=== PATIENT | female | born 2000 | race Caucasian/White ===

== ENCOUNTER 2020-07-27 20:43 | Emergency (ER) | payer BC, SELFPAY ==
--- NOTE | 2020-07-27 20:32 | ECG_ITS ---
APPROVED REPORT Exam: Resting ECG HR:73 bpm ECG Measurements Heart Rate 73 AXES NC 144 P 8 QRSd 86 QRS 58 QT 390 T 55 QTc 429 Conclusion Normal sinus rhythm Normal ECG Electronically signed by : Jorge L Hartman, 07/29/2020 07:27:23
[2020-07-27 20:43] VITALS: BP 132/91; PULSE 85; RESP 19; TEMP 36.5; O2SAT 97; BMI 45.3
--- NOTE | 2020-07-27 20:57 | CT_ITS ---
PROCEDURE INFORMATION: Exam: CT Cervical Spine Without Contrast Exam date and time: 07/27/2020 8:57 PM Age: 20 years old Clinical indication: Patient HX: Loc, nausea, dizzy, syncope, PT passed out and fell TECHNIQUE: Imaging protocol: Computed tomography images of the cervical spine without contrast. Radiation optimization: All CT scans at this facility use at least one of these dose optimization techniques: automated exposure control; mA and/or kV adjustment per patient size (includes targeted exams where dose is matched to clinical indication); or iterative reconstruction. COMPARISON: No relevant prior studies available. FINDINGS: Bones/joints: No acute fracture. Normal alignment. Discs/Spinal canal/Neural foramina: No significant disc protrusion. No severe spinal canal stenosis. No significant neural foraminal narrowing. Lungs: Lung apices are normal. Soft tissues: Unremarkable. IMPRESSION: No acute findings.
--- NOTE | 2020-07-27 20:57 | XR_ITS ---
PROCEDURE INFORMATION: Exam: XR Chest Exam date and time: 07/27/2020 8:57 PM Age: 20 years old Clinical indication: Cough; Additional info: SOB, cough TECHNIQUE: Imaging protocol: XR of the chest. Views: 4 or more views. COMPARISON: No relevant prior studies available. FINDINGS: Lungs: Unremarkable. No consolidation. Pleural spaces: Unremarkable. No pleural effusion. No pneumothorax. Heart/Mediastinum: Unremarkable. No cardiomegaly. Bones/joints: Unremarkable. IMPRESSION: No acute findings.
--- NOTE | 2020-07-27 20:57 | XR_ITS ---
PROCEDURE INFORMATION: Exam: XR Pelvis Exam date and time: 07/27/2020 8:57 PM Age: 20 years old Clinical indication: Injury or trauma; Blunt trauma (contusions or hematomas); Bilateral; Pelvic region; Injury date: 07/27/20; Patient HX: Fall from syncope TECHNIQUE: Imaging protocol: XR pelvis. Views: 1 or 2 view. COMPARISON: No relevant prior studies available. FINDINGS: Bones/joints: Unremarkable. No acute fracture. Soft tissues: Unremarkable. IMPRESSION: No acute findings.
--- NOTE | 2020-07-27 21:03 | CT_ITS ---
PROCEDURE INFORMATION: Exam: CT Head Without Contrast Exam date and time: 07/27/2020 9:03 PM Age: 20 years old Clinical indication: Syncope and collapse; Patient HX: Loc, nausea, dizzy, syncope, PT passed out and fell; Additional info: Syncopy TECHNIQUE: Imaging protocol: Computed tomography of the head without contrast. Radiation optimization: All CT scans at this facility use at least one of these dose optimization techniques: automated exposure control; mA and/or kV adjustment per patient size (includes targeted exams where dose is matched to clinical indication); or iterative reconstruction. COMPARISON: No relevant prior studies available. FINDINGS: Brain: Normal. No hemorrhage. Unremarkable white matter. No mass effect. Cerebral ventricles: No ventriculomegaly. Paranasal sinuses: Visualized sinuses are unremarkable. No fluid levels. Mastoid air cells: Visualized mastoid air cells are well aerated. Bones/joints: Unremarkable. No acute fracture. Soft tissues: Unremarkable. IMPRESSION: No acute intracranial abnormality.
--- NOTE | 2020-07-27 21:03 | HMH.EDSYNC ---
ED Disposition Clinical Impression: Vasovagal syncope Disposition: Home, Self-Care Condition on Discharge: Good Instructions: DI for Syncope in Adults (Fainting) Additional Instructions: fluids and see pcp for follow up Referrals: Provider,Referral, [Referring] - - Critical Care Critical Care Time: No Attestation: On 07/27/20, the high probability of a clinically significant, sudden or life threatening deterioration of the following system(s) required my full and direct attention, intervention and personal management. The time I documented below is in addition to time spent performing reported procedures but includes the following listed in this critical care notation. Medical Decision Making - Medical Records Medical records reviewed: Yes: I reviewed the patient's medical records. - [place] Inquiry Pt receiving controlled substance: No Vital Signs: 07/27/20 20:43 Temperature 97.7 F Temperature Source Oral Pulse Rate [Right] 85 Respiratory Rate 19 Blood Pressure [Right Arm] 132/91 H Blood Pressure Mean [Right Arm] 104 Blood Pressure Source [Right Arm] Automatic Cuff 02 Sat by Pulse Oximetry 97 Oxygen Delivery Method Room Air - Lab Data Lab results reviewed: Yes: I reviewed the patient's lab results. Lab Results 07/27/20 20:45: WBC 8.1, RBC 4.80, Hgb 14.3, Hct 42.8, MCV 89.1, MCH 29.8, MCHC 33.5, RDW 13.1, Plt Count 426 H, MPV 8.8, Neut % (Auto) 58.3, Lymph % (Auto) 35.4, [place] % (Auto) 2.5, Eos % (Auto) 3.5, Baso % (Auto) 0.3, Neut # (Auto) 4.7, Lymph # (Auto) 2.9, [place] # (Auto) 0.2, Eos # (Auto) 0.3, Baso # (Auto) 0.0, ESR 12 07/27/20 20:45: Sodium 138, Potassium 3.7, Chloride 108 H, Carbon Dioxide 26, Anion Gap 7.7, BUN 10, Creatinine 0.70, Estimated Creat Clear 96, Estimated GFR 106, Est GFR ( Amer) 128, Glucose 120 H, Calcium 8.9, Total Bilirubin 0.5, AST 22, ALT 14, Alkaline Phosphatase 53, Troponin I < 0.01, C-Reactive Protein 2.8, Total Protein 7.0, Albumin 4.1, Globulin 2.9, Albumin/Globulin Ratio 1.4, Procalcitonin 0.031 07/27/20 20:45: Serum HCG, Qual Negative Result diagrams: 07/27/20 20:45 07/27/20 20:45 Orders (Tests/Meds): ED MEDICATIONS Generic Name Dose Route Start Last Admin Trade Name Freq PRN Reason Stop Dose Admin Sodium Chloride 1,000 mls @ 999 mls/hr 07/27/20 21:15 07/27/20 21:03 Sod Chlor 0.9% 1000ml Bag IV 07/27/20 22:15 999 mls/hr .Q1H1M DEJON Administration Discontinued Medications Generic Name Dose Route Start Last Admin Trade Name Freq PRN Reason Stop Dose Admin Ketorolac Tromethamine 30 mg 07/27/20 20:57 07/27/20 22:13 Ketorolac 30mg/Ml Vial IV 07/27/20 20:58 30 mg ONCE ONE Administration Ondansetron HCl 4 mg 07/27/20 20:57 07/27/20 22:13 Ondansetron 4mg/2ml Vial IV 07/27/20 20:58 4 mg ONCE ONE Administration ORDERS Category Date Time Status Drug Screen,Urine Stat Lab 07/27/20 20:57 Ordered Troponin I Q3H Lab 07/28/20 00:00 Ordered Troponin I Q3H Lab 07/28/20 03:00 Ordered Urinalysis and Microscopic Stat Lab 07/27/20 20:57 Ordered - Radiology Data #1 Image(s): Chest, Pelvis Image Reviewed: Yes I reviewed the patient's radiology image Preliminary Findings: Normal/NAD - CT Data CT Scan: Head, C-Spine Time Received: 22:[address] Reviewed: Yes: I have viewed the radiologist's interpretation Preliminary Findings: No Fracture Seen - ECG Data Tracing #1 Normal Sinus Rhythm: Yes Ischemic changes: non-specific ST-T wave changes Medical Decision Narrative: pt with no focal changes - and stable exam Syncope HPI - General Chief Complaint: Syncope Stated Complaint: Passed out, nausea and dizzy Time Seen by Provider: 07/27/20 21:03 Mode of Arrival: EMS Source of Information: Patient, EMS, Medical Record Limitations: No Limitations Description of Symptoms (Recalled from ER Triage Doc. by RN): Pt reports she has felt nauseated and light headed after spending the day outside swimmin
[2020-07-27 21:09] LABS: Basophils % 0.3 % (0.1-2.0); Eosinophils # 0.3 K/mm3 (0.0-0.4); Eosinophils % 3.5 % (0.1-12.0); Hematocrit 42.8 % (37.0-47.0); Hemoglobin 14.3 g/dL (12.2-16.2); Lymphocytes # 2.9 K/mm3 (0.7-4.5); Lymphocytes % 35.4 % (10-50); Mean Corpuscular HGB Conc 33.5 g/dL (31.8-35.4); Mean Corpuscular Hemoglobin 29.8 pg (27.0-31.2); Mean Corpuscular Volume 89.1 fl (81-99); Mean Platelet Volume 8.8 fl (7.4-10.4); Monocytes # 0.2 K/mm3 (0.1-1.0); Monocytes % 2.5 % (1.7-9.3); Neutrophils # 4.7 K/mm3 (1.8-7.8); Neutrophils % 58.3 % (37.0-80.0); Platelet Count 426 K/mm3 (142-424); Red Cell Distribution Width 13.1 % (11.5-17.5); White Blood Count 8.1 K/mm3 (4.8-10.8)
[2020-07-27 21:13] LABS: Alanine Aminotransferase 14 U/L (12-78); Albumin Level 4.1 g/dl (3.5-5.0); Albumin/Globulin Ratio 1.4 (1.1-1.8); Alkaline Phosphatase 53 U/L (38-126); Anion Gap 7.7 mEq/L (5-15); Aspartate Amino Transferase 22 U/L (14-36); Bilirubin,Total 0.5 mg/dl (0.2-1.3); Blood Urea Nitrogen 10 mg/dl (7-17); Calcium 8.9 mg/dl (8.4-10.2); Carbon Dioxide 26 mmol/L (22.0-30.0); Chloride 108 mmol/L (98-107); Creatinine Clearance Estimated 96 mL/min (50-200); Estimated Glomerular Filt Rate 106 ml/min (>60); GFR (African American) 128 ML/MIN (>60); Globulin 2.9 g/dL (1.3-3.2); Glucose 120 mg/dl (74-100); Potassium 3.7 mmoL/L (3.5-5.1); Sodium 138 mmol/L (136-145)
[2020-07-27 21:16] LABS: HCG Qualitative, Serum Negative (Negative)
[2020-07-27 21:18] LABS: C-Reactive Protein 2.8 mg/L (0-4)
[2020-07-27 21:30] LABS: Troponin I < 0.01 ng/ml (0.00-0.034)
[2020-07-27 21:32] LABS: Erythrocyte Sedimentation Rate 12 mm/hr (0-20)
[2020-07-27 21:33] LABS: Procalcitonin 0.031 ng/mL (0.0-2.0)
[2020-07-27 22:34] VITALS: BP 125/74; PULSE 80; RESP 14; TEMP 36.5; O2SAT 97
== END 2020-07-27 22:37 | disposition home or self-care (01) ==
PROVIDERS: Emergency Provider Emergency Medicine; PCP Emergency Medicine
DX: R55 Syncope and collapse (principal)
CPT/HCPCS: 70450; 71045; 72125; 72170; 80053; 84145; 84484; 84703; 85025; 85651; 86140; 93005; 96365; 96375; 99283; J2405

== ENCOUNTER 2020-08-12 17:36 | Emergency (ER) | payer BC, SELFPAY ==
[2020-08-12 17:36] VITALS: BP 135/77; PULSE 95; RESP 16; TEMP 36.7; O2SAT 97; BMI 43.4
[2020-08-12 17:57] LABS: Basophils % 0.4 % (0.1-2.0); Eosinophils # 0.3 K/mm3 (0.0-0.4); Eosinophils % 3.4 % (0.1-12.0); Hematocrit 44.5 % (37.0-47.0); Hemoglobin 14.3 g/dL (12.2-16.2); Lymphocytes # 2.8 K/mm3 (0.7-4.5); Lymphocytes % 30.4 % (10-50); Mean Corpuscular HGB Conc 32.1 g/dL (31.8-35.4); Mean Corpuscular Hemoglobin 28.9 pg (27.0-31.2); Mean Platelet Volume 8.1 fl (7.4-10.4); Monocytes # 0.5 K/mm3 (0.1-1.0); Neutrophils # 5.7 K/mm3 (1.8-7.8); Neutrophils % 60.8 % (37.0-80.0); Platelet Count 478 K/mm3 (142-424); Red Blood Count 4.94 M/mm3 (4.20-5.40); Red Cell Distribution Width 12.4 % (11.5-17.5); White Blood Count 9.3 K/mm3 (4.8-10.8)
[2020-08-12 18:00] VITALS: BP 144/85; PULSE 97; O2SAT 97
[2020-08-12 18:05] LABS: Alanine Aminotransferase 12 U/L (12-78); Albumin Level 4.4 g/dl (3.5-5.0); Albumin/Globulin Ratio 1.5 (1.1-1.8); Alkaline Phosphatase 58 U/L (38-126); Anion Gap 8.7 mEq/L (5-15); Aspartate Amino Transferase 21 U/L (14-36); Bilirubin,Total 0.5 mg/dl (0.2-1.3); Blood Urea Nitrogen 11 mg/dl (7-17); Calcium 9.2 mg/dl (8.4-10.2); Carbon Dioxide 24 mmol/L (22.0-30.0); Chloride 111 mmol/L (98-107); Creatinine Clearance Estimated 84 mL/min (50-200); Estimated Glomerular Filt Rate 91 ml/min (>60); GFR (African American) 110 ML/MIN (>60); Glucose 98 mg/dl (74-100); Potassium 3.7 mmoL/L (3.5-5.1); Sodium 140 mmol/L (136-145); Total Protein,Serum 7.4 g/dl (6.3-8.2)
--- NOTE | 2020-08-12 18:11 | HMH.EDABDPAI ---
ED Disposition Clinical Impression: Acute UTI Disposition: Home, Self-Care Condition on Discharge: Good Instructions: DI for Urinary Tract Infection (UTI) Prescriptions: Nitrofurantoin Monohyd/M-Cryst [Macrobid 100 mg Capsule] 100 mg PO BID #20 cap Transmission Status: Pending to [facility] Promethazine HCl 12.5 mg PO BID #20 tab Transmission Status: Pending to [facility] Referrals: Provider,Referral, [Referring] - - Critical Care Critical Care Time: No Attestation: On 08/12/20, the high probability of a clinically significant, sudden or life threatening deterioration of the following system(s) required my full and direct attention, intervention and personal management. The time I documented below is in addition to time spent performing reported procedures but includes the following listed in this critical care notation. Medical Decision Making - Medical Records Medical records reviewed: Yes: I reviewed the patient's medical records. - [place] Inquiry Pt receiving controlled substance: No Vital Signs: 08/12/20 17:36 08/12/20 18:00 Temperature 98.1 F Temperature Source Oral Pulse Rate 97 H Pulse Rate [Right] 95 H Respiratory Rate 16 Blood Pressure 144/85 H Blood Pressure [Right Arm] 135/77 Blood Pressure Mean [Right Arm] 96 02 Sat by Pulse Oximetry 97 97 Oxygen Delivery Method Room Air - Lab Data Lab Results 08/12/20 17:42: WBC 9.3, RBC 4.94, Hgb 14.3, Hct 44.5, MCV 90.0, MCH 28.9, MCHC 32.1, RDW 12.4, Plt Count 478 H, MPV 8.1, Neut % (Auto) 60.8, Lymph % (Auto) 30.4, Green % (Auto) 5.0, Eos % (Auto) 3.4, Baso % (Auto) 0.4, Neut # (Auto) 5.7, Lymph # (Auto) 2.8, Green # (Auto) 0.5, Eos # (Auto) 0.3, Baso # (Auto) 0.0 08/12/20 17:42: Sodium 140, Potassium 3.7, Chloride 111 H, Carbon Dioxide 24, Anion Gap 8.7, BUN 11, Creatinine 0.80, Estimated Creat Clear 84, Estimated GFR 91, Est GFR ( Amer) 110, Glucose 98, Calcium 9.2, Total Bilirubin 0.5, AST 21, ALT 12, Alkaline Phosphatase 58, Total Protein 7.4, Albumin 4.4, Globulin 3.0, Albumin/Globulin Ratio 1.5 08/12/20 18:22: Urine Color Yellow, Urine Appearance Cloudy, Urine pH 7.0, Ur Specific [place] 1.025, Urine Protein Trace, Urine Glucose (UA) Negative, Urine Ketones Negative, Urine Blood Negative, Urine Nitrate Negative, Urine Bilirubin 1+ A, Urine Urobilinogen 1.0, Ur Leukocyte Esterase 2+ A, Urine WBC 20-50, Ur Squamous Epith Cells 20-50, Urine Bacteria 4+ 08/12/20 18:22: Urine HCG, Qual Negative Result diagrams: 08/12/20 17:42 08/12/20 17:42 Orders (Tests/Meds): ED MEDICATIONS Generic Name Dose Route Start Last Admin Trade Name Freq PRN Reason Stop Dose Admin Promethazine HCl 25 mg 08/12/20 19:00 Promethazine Hcl 25mg/Ml 1ml Vial IV 08/12/20 19:01 ONCE ONE Discontinued Medications Generic Name Dose Route Start Last Admin Trade Name Freq PRN Reason Stop Dose Admin Acetaminophen 500 mg 08/12/20 18:07 08/12/20 18:10 Acetaminophen 500mg Tab PO 08/12/20 18:08 500 mg ONCE ONE Administration Ondansetron HCl 4 mg 08/12/20 18:27 08/12/20 18:27 Ondansetron 4mg/2ml Vial IV 08/12/20 18:28 4 mg ONCE ONE Administration ORDERS Category Date Time Status Urine Culture Stat Micro 08/12/20 18:22 Received - Reevaluation(s) Time: 19:00 Reevaluation #1: On reevaluation, patient is feeling better. Repeat abdominal exam is benign. No acute abdomen. Patient is currently tolerating oral intake. Findings are consistent with acute urinary tract infection. Patient is not . Patient is to follow-up with PCP in 48 hours for repeat examination or return to the emergency department. Patient verbalized understanding. Medical Decision Narrative: 20-year-old female presented to the emergency department with some abdominal cramping and spotting. Patient is unsure if she is , however should be due for her menstrual cycle soon. Her abdominal exam is benign. Wo
[2020-08-12 18:25] LABS: Microscopic, Urine URINE MICROSCOPIC (MICROSCOPIC)
[2020-08-12 18:28] LABS: Appearance,Urine CLOUDY (Clear); Blood, Urine Negative (Negative); Color,Urine YELLOW (Yellow); Glucose,Urine (UA) Negative (Negative); Ketones,Urine Negative (Negative); Leukocyte Esterase,Urine 2+ (Negative); Nitrate,Urine Negative (Negative); Protein,Urine TRACE (Negative); Specific Gravity, Urine 1.025 (1.005-1.030)
[2020-08-12 18:30] LABS: Urine Pregnancy, HCG Qual. Negative (Negative)
[2020-08-12 18:36] LABS: Bilirubin,Urine 1+ (Negative)
[2020-08-12 18:37] LABS: Bacteria,Urine 4+ /lpf; Squamous Epithelial Cell,Urine 20-50 #/hpf (0-5); WBC,Urine 20-50 #/hpf (0-3)
[2020-08-12 19:10] VITALS: BP 124/82; PULSE 91; RESP 18; TEMP 36.7; O2SAT 97
== END 2020-08-12 19:12 | disposition home or self-care (01) ==
PROVIDERS: Emergency Provider Emergency Medicine; PCP Emergency Medicine
DX: N30.00 Acute cystitis without hematuria (principal); F17.210 Nicotine dependence, cigarettes, uncomplicated; Z88.0 Allergy status to penicillin
CPT/HCPCS: 80053; 81001; 81025; 85025; 87086; 96375; 99282; J2405

== ENCOUNTER 2021-12-20 10:41 | Emergency (ER) | payer BC, SELFPAY ==
[2021-12-20 11:21] VITALS: BP 143/83; PULSE 109; RESP 18; TEMP 37.1; O2SAT 100; BMI 41.1
[2021-12-20 11:26] LABS: UTC Influenza A Antigen Negative (Negative)
[2021-12-20 11:27] LABS: UTC Influenza B Antigen Negative (Negative)
--- NOTE | 2021-12-20 11:29 | EXP.UTC ---
Discharge Plan Disposition Patient Disposition: Home, Self-Care Condition: Good Prescriptions Prescriptions: New [id number] [Bromfed DM] 2-30-10 mg/5 mL Syrup 10 ml PO Q4H PRN (Reason: Cough) Qty: 240 0RF Referrals Follow up/Referrals: Provider,Referral, MD [Primary Care Provider] - See instructions Activity Restrictions/Add. Instructions Additional Instructions/Restrictions: *Monitor Temp, Over the counter Motrin or Tylenol as directed/as needed Tylenol every 4 hours and Motrin every 6 hours (as long as your family doctor has told you that you can take it) for fever or pain. and straight to ER if unable to lower temp less than 101.0 after medication given *Warm salt water gargles may help to soothe the throat *Throat Lozenges? *Warm fluids like tea with honey may help to soothe the throat? *Sleep elevated *Humidifier/Vaporizer *Bromfed may cause drowsiness. Know how it effects you (your child) before driving, caring for small child, or sending your child to school. Not other antihistamines/allergy medications while taking bromfed Follow up IMMEDIATELY for new or worsening symptoms or no Noticeable improvement over the next 48-72 hours. 911 for difficulty breathing or swallowing You were tested for today for COVID19 your test result should be back in the next 24-48 hours, you may check your results on the [facility] [employer] [facility] Clinical Impressions Clinical Impression: Viral upper respiratory tract infection with cough Stand Alone Forms Stand Alone Forms: Work/School Release Instructions Patient Instructions: Cough, DI for Viral Upper Respiratory Infection -- Adult Discharge ED Provider: Gail Matt [facility] [place] General Stated complaint: body aches, cough, congestion, runny nose, chills Mode of Arrival: Ambulatory Source of Information: Patient Limitations: No Limitations Time Seen by Provider: 12/20/21 11:29 Description of Symptoms (Recalled from Triage Doc. by RN): pt comes in with c/o cough, fever, body aches, ongoing for 2 days HEENT Symptoms (Recalled from RN notes): Yes Resp Symptoms (Recalled from RN notes): Yes Skin Symptoms (Recalled from RN notes): No MS Symptoms (Recalled from RN notes): No Functional Status (Recalled from RN notes): n/a History of Present Illness Provider Complaint: Patient states that for the last couple of days she has been having fever, chills and body aches States that one of the kids that lives in the home come home sick and has spread it through the house Related Data Previous Rx's Medication Instructions Recorded [id number] 10 ml PO Q4H PRN Cough #240 mL 12/20/21 2 mg-30 mg-10 mg/5 mL oral syrup (Bromfed DM) Allergies Allergy/AdvReac Type Severity Reaction Status Date / Time codeine Allergy Severe Hives Verified 12/20/21 11:23 Penicillins Allergy Severe Hives Verified 12/20/21 11:23 Worker's Comp Is this a Worker's Comp case?: No PFSH PFSH Social History Smoking Status: Current every day smoker tobacco type: cigarettes packs per day: 1 alcohol intake: never substance use type: marijuana current occupational status: unemployed Travel in the last 8 weeks: None household members: significant other housing: apartment ROS Obtained: Yes All systems reviewed & no additional complaints except as documented and Yes Systems reviewed as appropriate & no additional complaints except as documented Constitutional Constitutional: Reports system reviewed and no additional complaints, except as documented, Reports as per HPI, Reports body ache, Reports chills, Reports fatigue and Reports fever(s) ENT Ears, Nose, Mouth, and Throat: Reports system reviewed and no additional complaints, except as documented, Reports as per HPI and Reports nasal congestion Cardiovascular Cardiovascular: Reports system reviewed and no additional complaints, exce
[2021-12-20 11:49] VITALS: BP 143/83; PULSE 109; RESP 18; TEMP 37.1
[2021-12-20 12:34] LABS: Adenovirus,PCR Not Detected (NotDetected); Bordetella Pertussis Not Detected (NotDetected); Chlamydophila Pneumoniae, PCR Not Detected (NotDetected); Coronavirus 19, PCR Not Detected (NotDetected); Coronavirus 229E Not Detected (NotDetected); Coronavirus NL63 Not Detected (NotDetected); Coronavirus OC43 Not Detected (NotDetected); Coronovirus HKU1,PCR Not Detected (NotDetected); Human Metapneumovirus Not Detected (NotDetected); Influenza A, PCR Not Detected (NotDetected); Influenza AH1, 2009 Not Detected (NotDetected); Influenza AH1, PCR Not Detected (NotDetected); Influenza B, PCR Not Detected (NotDetected); Mycoplasma Pneumoniae, PCR Not Detected (NotDetected); Parainfluenza 1, PCR Not Detected (NotDetected); Parainfluenza 2, PCR Not Detected (NotDetected); Parainfluenza 3, PCR Not Detected (NotDetected); Parainfluenza 4, PCR Not Detected (NotDetected); Respiratory Syncytial Virus Not Detected (NotDetected); Rhinovirus/Enterovirus Not Detected (NotDetected)
[2021-12-20 18:07] LABS: Influenza AH3,PCR Detected (NotDetected)
--- NOTE | 2021-12-20 20:17 | PC.NURSE ---
ATTEMPTED TO CALL PT ABOUT POS FLU RESULTS BUT NO ANSWER
== END 2021-12-20 11:56 | disposition home or self-care (01) ==
PROVIDERS: Emergency Provider Nurse Practitioner
DX: J06.9 Acute upper respiratory infection, unspecified (principal)
CPT/HCPCS: 87581; 87632; 87798; 87804; 99212; C9803; G0463; U0003; U0005